=== PATIENT | female | born 1960 | race Caucasian/White ===

== ENCOUNTER 2019-03-29 15:53 | Inpatient (IN) | payer OTHER | END 2019-03-31 10:00 | disposition left against medical advice (07) | LOC: YASAS 15:53 → Y6N 21:25 ==

== ENCOUNTER 2019-05-22 16:21 | Inpatient (IN) | payer OTHER ==
[2019-05-22 22:41] VITALS: BMI 22.4
--- NOTE | 2019-05-23 00:35 | HP ---
"CIWA Score Nausea/Vomitin Muscle Tremors: 4-Moderate,w/Arms Extend Anxiety: 4-Mod. Anxious/Guarded Agitation: 6 Paroxysmal Sweats: 3 (Increased facial moisture) Orientation: 1-Uncertain about Date Tacttile Disturbances: 0-None Auditory Disturbances: 0-None Visual Disturbances: 0-None Headache: 0-None Present CIWA-Ar Total Score: 21 - Admission Criteria OASAS Guidelines: Admission for Medically Managed Detox: Requires at least one of the followin. CIWA greater than 12 2. Seizures within the past 24 hours 3. Delirium tremens within the past 24 hours 4. Hallucinations within the past 24 hours 5. Acute intervention needed for co occurring medical disorder 6. Acute intervention needed for co occurring psychiatric disorder 7. Severe withdrawal that cannot be handled at a lower level of care (continued vomiting, continued diarrhea, abnormal vital signs) requiring intravenous medication and/or fluids 8. Patient presents the following: CIWA greater than 12 Admission Criteria Met: Admission criteria met Admission ROS [facility] Chief Complaint: Alcohol withdrawal Allergies/Adverse Reactions: Allergies Allergy/AdvReac Type Severity Reaction Status Date / Time No Known Allergies Allergy Verified 05/22/19 22:32 History of Present Illness: 58 yo here with alcohol withdrawal being admitted for detox. Very agitated. Yelling and screaming. Last admission 03/2019; Alcohol use began at age 16. Current use x past 6 months off and on. 12 beers and about 1/2 - pint liquor daily. Nicotine use became 15. UTox + BZO TOBIAS: 0.136 Denies hx seizures/blackouts. PMHx: Denies significant PMH Last EKG @ [facility] on 03/29/19 MHHx: Bipolar. Currently talking meds. Has own MH Provider. Denies thoughts of harming self or others. Patient Name: Aydee Ghotra Date: 1960 Address: [address] [place] [address] Sex: Female Rx Written Rx Dispensed Drug Quantity Days Supply Prescriber Name 10/17/2018 10/18/2018 clonazepam 0.5 mg tablet 28 14 Jose Turner Search Terms: Aydee Ghotra, 1960 Search Date: 05/23/2019 12:46:02 AM States Searched: [place], [place], [place], [place], [place], [place] The Drug Utilization Report below displays the controlled substance prescriptions, if any, that were dispensed in the indicated state(s). The information displayed on this report is compiled from requests submitted to other states' PMPs, and accurately reflects the information as returned by them. Blank kirk indicate data not provided by other state. This report was requested by: Sierra Contreras | Reference #: [id number] Exam Limitations: No Limitations - Ebola screening Have you traveled outside of the country in the last 21 days: No Have you had contact with anyone from an Ebola affected area: No Have you been sick,other than usual withdrawal symptoms: No (Denies recent exposure to measles) Do you have a fever: No - Review of Systems Constitutional: Diaphoresis (Increased facial moisture), Changes in sleep ( Difficulty staying asleep - on Remeron.) EENT: reports: Blurred Vision Respiratory: reports: No Symptoms reported Cardiac: reports: No Symptoms Reported GI: reports: Nausea, Vomiting, Indigestion (acid reflux - controlled by diet) : reports: No Symptoms Reported Musculoskeletal: reports: No Symptoms Reported Integumentary: reports: No Symptoms Reported Neuro: reports: Tremors Endocrine: reports: Increased Thirst Hematology: reports: No Symptoms Reported Psychiatric: reports: Judgement Intact, Orientated x3, Agitated, Anxious, Depressed (Denies thoughts of harming self.) Patient History - Patient Medical History Hx Anemia: No Hx Asthma: No Hx Chronic Obstructive Pulmonary Disease (COPD): No Hx Cancer: No Hx Cardiac Disorders: No Hx Congestive Heart Failure: No Hx Hypertension: No Hx Hypercholesterolemia: No Hx Pacemaker: No HX Cerebrovascular Accident: No Hx Seizures: No Hx Dementia: No Hx Diabetes: No Hx Gastrointestinal Disorders: No Hx Liver Disease: No Hx Genitourinary Disorders: No Hx Sexually Transmitted Disorders: No Hx Renal Disease (ESRD): No Hx Thyroid Disease: No Hx Human Immunodeficiency Virus (HIV): No Hx Hepatitis C: No Hx Depression: Yes Hx Suicide Attempt: No Hx Bipolar Disorder: Yes Hx Schizophrenia: No - Patient Surgical History Past Surgical History: No Hx Neurologic Surgery: No Hx Cataract Extraction: No Hx Cardiac Surgery: No Hx Lung Surgery: No Hx Breast Surgery: No Hx Breast Biopsy: No Hx Abdominal Surgery: No Hx Appendectomy: No Hx Cholecystectomy: No Hx Genitourinary Surgery: No Hx Section: No Hx Orthopedic Surgery: No Anesthesia Reaction: No - PPD History Previous Implant?: Yes Documented Results: Negative w/proof Implanted On Prior [facility] Admission?: Yes Date: 03/31/19 PPD to be Administered?: No - Smoking Cessation Smoking history: Current every day smoker Have you smoked in the past 12 months: Yes Aproximately how many cigarettes per day: 15 Cigars Per Day: 0 Hx Chewing Tobacco Use: No Initiated information on smoking cessation: Yes 'Breaking Loose' booklet given: 05/23/19 - Substance & Tx. History Hx Alcohol Use: Yes Hx Substance Use: Yes Substance Use Type: Alcohol Hx Substance Use Treatment: Yes (detox, rehab) - Substances abused Alcohol Substance route: Oral Frequency: Daily Amount used: 10 beers 12-16 oz CANS Age of first use: 16 Date of last use: 05/22/19 Family Disease History - Family Disease History Family Disease History: Other: Father (ALCOHOL, ), Mother (ALCOHOL), Brother ( BIPOLAR) Admission Physical Exam [facility] - Vital Signs Vital Signs: Vital Signs - 24 hr 05/22/19 22:28 Temperature 98.1 F Pulse Rate 101 H Respiratory 16 Rate Blood Pressure 107/80 - Physical General Appearance: Yes: Mild Distress, Tremorous, Irritable, Sweating ( Increased facial moisture), Anxious HEENTM: Yes: EOMI (Jerking movement of eyes on lateral gaze), Hearing grossly Normal, Normocephalic, Normal Voice, DAO, Pharynx Normal Respiratory: Yes: Lungs Clear, Normal Breath Sounds, No Respiratory Distress Neck: Yes: No masses,lesions,Nodules, Supple Breast: Yes: Breast Exam Deferred Cardiology: Yes: Regular Rhythm, S1, S2, Tachycardia Abdominal: Yes: Non Tender, Soft, Increased Bowel Sounds, Protuberent Genitourinary: Yes: Within Normal Limits Back: Yes: Normal Inspection Musculoskeletal: Yes: full range of Motion, Gait Steady Extremities: Yes: Normal Capillary Refill, Normal Range of Motion, Tremors Neurological: Yes: collision worker II-XII NML intact (Jerking movement of eyes on lateral gaze), Alert, Motor Strength 5/5, Normal Response (r/t situation) Integumentary: Yes: Normal Color, Dry (Decreased skin turgor. Increased facial moisture), Warm Lymphatic: Yes: Within Normal Limits - Diagnostic (1) Nystagmus Current Visit: Yes Status: Acute (2) Alcohol dependence with uncomplicated withdrawal Current Visit: Yes Status: Acute (3) At risk for dehydration due to poor fluid intake Current Visit: Yes Status: Acute (4) Nicotine dependence Current Visit: Yes Status: Chronic Qualifiers: Nicotine product type: cigarettes Substance use status: uncomplicated Qualified Code(s): F17.210 - Nicotine dependence, cigarettes, uncomplicated Cleared for Admission [facility] - Detox or Rehab S Level of Care: Medically Managed Detox Regimen/Protocol: Not Applicable (ATIVAN) Claeared for Rehab Admission: No Screened but not Admitted - Documentation of Visit Screened but not Admitted: No Breathalyzer - Breathalyzer Breathalyzer: 0.136 Urine Drug Screen - Test Device Lot number: [id number] Expiration date: 12/08/20 - Control Is test valid?: Yes - Results Drug screen NEGATIVE: No Urine drug screen results: BZO-Benzodiazepines Inpatient Rehab Admission - Rehab Decision to Admit Inpatient rehab admission?: No"
[2019-05-23] MEDS ORDERED: MAGNESIUM HYDROX 2400MG/30ML ORAL SUSPENSION 30 ML CUP PO PRN (01:02)
[2019-05-23] MEDS ORDERED: MENTHOL/PHENOL 1 EACH UD MM PRN (01:02)
[2019-05-23] MEDS ORDERED: METHOCARBAMOL 500 MG TABLET PO PRN (01:02)
[2019-05-23] MEDS ORDERED: IBUPROFEN 400 MG TABLET (FP) PO PRN (01:02)
[2019-05-23] MEDS ORDERED: MAGNESIUM CITRATE 300 ML BOTTLE PO PRN (01:02)
[2019-05-23] MEDS ORDERED: BISMUTH SUBSALICYLATE 524 MG/30 ML UD PO PRN (01:02)
[2019-05-23] MEDS ORDERED: MELATONIN 5 MG TABLETS PO PRN (01:02)
[2019-05-23] MEDS ORDERED: ACETAMINOPHEN 325 MG TABLET (FP) PO PRN ×2 (01:02)
[2019-05-23] MEDS ORDERED: LORazepam 2 MG TABLET PO ONE (01:02)
[2019-05-23] MEDS ORDERED: MAG HYDROX/AL HYDROX/SIMETH 30 ML UNIT-DOSE CUP PO PRN (01:02)
[2019-05-23] MEDS ORDERED: LORazepam 1 MG TABLET PO PRN (01:02)
[2019-05-23] MEDS ORDERED: MIRTAZAPINE 15 MG TABLET (FP) PO ONE (01:06)
[2019-05-23] MEDS: LORazepam 2 MG TABLET PO SCH ×2 (06:24→11:48)
[2019-05-23] MEDS ORDERED: TOPIRAMATE 100 MG TABLET PO SCH (10:00)
[2019-05-23] MEDS ORDERED: chlordiazePOXIDE HCL 25 MG CAPSULE PO PRN (11:38)
[2019-05-23] MEDS ORDERED: chlordiazePOXIDE HCL 25 MG CAPSULE PO ONE (11:50)
[2019-05-23] MEDS: PRENATAL VITAMINS W/ FOLIC ACID TABLET (FP) PO SCH (11:55)
[2019-05-23] MEDS: NICOTINE 14 MG/24 HOURS TOPICAL PATCH TD SCH (11:58)
[2019-05-23 12:12] LABS: HEMATOCRIT 34.2 % (32.4-45.2); HEMOGLOBIN 11.5 GM/dL (10.7-15.3); MCH 31.2 pg (25.7-33.7); MCHC 33.7 g/dl (32.0-36.0); MEAN CELL VOLUME 92.7 fl (80-96); MEAN PLT VOLUME 8.1 fl (7.5-11.1); RBC 3.69 M/mm3 (3.60-5.2); RDW 13.5 % (11.6-15.6); WHITE BLOOD COUNT 6.1 K/mm3 (4.0-10.0)
[2019-05-23 12:31] LABS: ALBUMIN 3.4 g/dl (3.4-5.0); BILIRUBIN,TOTAL 0.2 mg/dL (0.2-1); BLOOD UREA NITROGEN 16.9 mg/dL (7-18); CALCIUM 8.8 mg/dL (8.5-10.1); CREATININE 0.7 mg/dL (0.55-1.3); TOT PROT 6.4 g/dl (6.4-8.2)
[2019-05-23 13:16] LABS: PLATELET COUNT 277 K/MM3 (134-434)
--- NOTE | 2019-05-23 13:19 | PN ---
S CIWA - CIWA Score Nausea/Vomitin-No Nausea/No Vomiting Muscle Tremors: 4-Moderate,w/Arms Extend Anxiety: 4-Mod. Anxious/Guarded Agitation: 4-Moderately Restless Paroxysmal Sweats: 3 Orientation: 0-Oriented Tacttile Disturbances: 0-None Auditory Disturbances: 0-None Visual Disturbances: 0-None Headache: 1-Very Mild CIWA-Ar Total Score: 16 BHS Progress Note (SOAP) Subjective: shakes sweats irritable agitation interrupted sleep Objective: 05/23/19 13:16 Vital Signs Temperature 98.1 F 05/23/19 09:44 Pulse Rate 89 05/23/19 09:44 Respiratory Rate 18 05/23/19 09:44 Blood Pressure 121/73 05/23/19 09:44 O2 Sat by Pulse Oximetry (%) Laboratory Tests 05/23/19 05/23/19 07:00 07:00 WBC 6.1 RBC 3.69 Hgb 11.5 Hct 34.2 MCV 92.7 MCH 31.2 MCHC 33.7 RDW 13.5 Plt Count 277 D MPV 8.1 Sodium 140 Potassium 4.0 Chloride 109 H Carbon Dioxide 27 Anion Gap 4 L BUN 16.9 Creatinine 0.7 Est GFR (CKD-EPI)AfAm 110.69 Est GFR (CKD-EPI)NonAf 95.50 Random Glucose 85 Calcium 8.8 Total Bilirubin 0.2 AST 13 L ALT 26 Alkaline Phosphatase 81 Total Protein 6.4 Albumin 3.4 labs noted aaox3 ambulating no acute distress Assessment: 05/23/19 13:17 withdrawal sx discussed with pt regarding her reason for an ativan regimen detox and she states its what i have used in the past. educated her that her s/s would be better controlled with librium taper and ativan is not long acting therefore its not appropriate for her with her alcohol dependence. Pt agreed with the librium taper and she will be placed on librium detox. Plan: continue with new detox regimen of librium increase fluids
--- NOTE | 2019-05-23 17:43 | CONSULT ---
[facility] Psych[facility] Consult - Data Date of interview: 05/23/19 Admission source: Self-referred Identifying data: Ms Ghotra is a 58 years old single female, unemployed receiving SSD, domiciled seeking detox treatment for alcohol Substance Abuse History: Reports history of alcohol use. Refer to addiction counselor's summary for further information Medical History: Unremarkable Psychiatric History: Patient is hostile and superficially cooperative. She reports being diagnosed with Bipolar Disorder in 2007 and started on psychotropic medications. Reports multiple psychiatric hospitalizations but can only name [facility]. Reports seeing a private psychiatrist in [facility] and she is prescribed Wellbutin XL 150 mg/day, [place] 300 mg.bid, Remeron 15 mg/hs and Topamax 300 mg/hs. External medication history shows scripts for 30 days supply of Wellbutrin XL 150mg/day, [place] 300 mg,bid, Remeron 15 mg/hs and Topamax 300 mg/hs filled on 03/10/19 at [facility] Physical/Sexual Abuse/Trauma History: Note elicited due to patient hostility Mental Status Exam - Mental Status Exam Alert and Oriented to: Time, Place, Person Cognitive Function: Fair Patient Appearance: Well Groomed Mood: Irritable Affect: Appropriate Patient Behavior: Cooperative Speech Pattern: Clear Voice Loudness: Normal Thought Process: Intact, Goal Oriented Hallucinations: Denies Suicidal Ideation: Denies Homicidal Ideation: Denies Insight/Judgement: Poor Sleep: Poorly Appetite: Poor Muscle strength/Tone: Normal Gait/Station: Normal Psychiatric Findings - Problem List ([place] 1, 2,3) (1) Bipolar disorder Current Visit: No Status: Chronic Comment: History confirmed by current regimen of medications + self-report. (2) Alcohol-induced mood disorder Current Visit: Yes Status: Acute (3) Alcohol-induced sleep disorder Current Visit: Yes Status: Acute (4) Alcohol dependence with uncomplicated withdrawal Current Visit: Yes Status: Acute (5) Nicotine dependence Current Visit: Yes Status: Chronic Qualifiers: Nicotine product type: cigarettes Substance use status: uncomplicated Qualified Code(s): F17.210 - Nicotine dependence, cigarettes, uncomplicated - Initial Treatment Plan Initial Treatment Plan: 1) Resume Wellbutrin XL 150 mg po daily, [place] 300 mg po BID(Bun 16.9, creat 0.7), Remeron 15 mg po HS and Topamax 300 mg po HS. 2 ) [place] serum level. 3) Continue inpatient detoxification
[2019-05-23] MEDS: chlordiazePOXIDE HCL 25 MG CAPSULE PO SCH ×2 (17:53→23:13)
[2019-05-23] MEDS ORDERED: MIRTAZAPINE 15 MG TABLET (FP) PO SCH (22:00)
[2019-05-23] MEDS: TOPIRAMATE 100 MG TABLET PO SCH (23:12)
[2019-05-23] MEDS: MIRTAZAPINE 15 MG TABLET (FP) PO SCH (23:13)
[2019-05-23] MEDS: THIAMINE HCL 100 MG TABLET (FP) PO SCH (23:13)
[2019-05-23] MEDS: LITHIUM CARBONATE 300 MG CAPSULE (FP) PO SCH (23:15)
[2019-05-24] MEDS ORDERED: LORazepam 1 MG TABLET PO SCH (05:00)
[2019-05-24] MEDS: chlordiazePOXIDE HCL 25 MG CAPSULE PO SCH ×4 (06:52→22:31)
[2019-05-24] MEDS: LITHIUM CARBONATE 300 MG CAPSULE (FP) PO SCH ×2 (10:32→22:36)
[2019-05-24] MEDS: PRENATAL VITAMINS W/ FOLIC ACID TABLET (FP) PO SCH (10:33)
[2019-05-24] MEDS: NICOTINE 14 MG/24 HOURS TOPICAL PATCH TD SCH (10:34)
--- NOTE | 2019-05-24 11:48 | PN ---
S CIWA - CIWA Score Nausea/Vomitin-No Nausea/No Vomiting Muscle Tremors: 3 Anxiety: 3 Agitation: 3 Paroxysmal Sweats: 3 Orientation: 0-Oriented Tacttile Disturbances: 0-None Auditory Disturbances: 0-None Visual Disturbances: 0-None Headache: 0-None Present CIWA-Ar Total Score: 12 S Progress Note (SOAP) Subjective: agitation sweats irritable interrupted sleep want to see dietary Objective: 05/24/19 11:48 Vital Signs Temperature 97 F L 05/24/19 07:36 Pulse Rate 72 05/24/19 07:36 Respiratory Rate 18 05/24/19 07:36 Blood Pressure 101/70 05/24/19 07:36 O2 Sat by Pulse Oximetry (%) Laboratory Tests 05/23/19 05/23/19 05/23/19 07:00 07:00 07:00 WBC 6.1 RBC 3.69 Hgb 11.5 Hct 34.2 MCV 92.7 MCH 31.2 MCHC 33.7 RDW 13.5 Plt Count 277 D MPV 8.1 Sodium 140 Potassium 4.0 Chloride 109 H Carbon Dioxide 27 Anion Gap 4 L BUN 16.9 Creatinine 0.7 Est GFR (CKD-EPI)AfAm 110.69 Est GFR (CKD-EPI)NonAf 95.50 Random Glucose 85 Calcium 8.8 Total Bilirubin 0.2 AST 13 L ALT 26 Alkaline Phosphatase 81 Total Protein 6.4 Albumin 3.4 RPR Titer Nonreactive aaox3 ambulating no acute distress Assessment: 05/24/19 11:48 withdrawal sx Plan: continue detox increase fluids dietary production support consultant ordered
[2019-05-24] MEDS: MIRTAZAPINE 15 MG TABLET (FP) PO SCH (22:31)
[2019-05-24] MEDS: TOPIRAMATE 100 MG TABLET PO SCH (22:32)
[2019-05-24] MEDS: THIAMINE HCL 100 MG TABLET (FP) PO SCH (22:33)
[2019-05-25] MEDS ORDERED: LORazepam 0.5 MG TABLET PO PRN
[2019-05-25] MEDS ORDERED: chlordiazePOXIDE HCL 25 MG CAPSULE PO SCH (05:00)
[2019-05-25] MEDS ORDERED: LORazepam 0.5 MG TABLET PO SCH (05:00)
[2019-05-25 09:47] VITALS: BP 91/58; PULSE 85; TEMP 98.1
--- NOTE | 2019-05-25 10:55 | PN ---
S Progress Note Note: pt was admitted in withdrawals pt c/o withdrawals s/s and aggressive symptomatic management attempted however, pt in spite of extensive motivational counseling regarding the risk of relapse, seizures, DT's, and or loss, pt chose to sign out AMA.
--- NOTE | 2019-05-25 11:10 | DS ---
[facility] Detox Discharge Summary Admission Date: 05/23/19 - History Present History: Alcohol Dependence - Physical Exam Results Vital Signs: Vital Signs Temperature 98.1 F 05/25/19 09:47 Pulse Rate 85 05/25/19 09:47 Respiratory Rate 16 05/25/19 09:47 Blood Pressure 91/58 L 05/25/19 09:47 O2 Sat by Pulse Oximetry (%) Pertinent Admission Physical Exam Findings: pt arrived [facility] Laboratory Tests 05/23/19 05/23/19 05/23/19 07:00 07:00 07:00 WBC 6.1 RBC 3.69 Hgb 11.5 Hct 34.2 MCV 92.7 MCH 31.2 MCHC 33.7 RDW 13.5 Plt Count 277 D MPV 8.1 Sodium 140 Potassium 4.0 Chloride 109 H Carbon Dioxide 27 Anion Gap 4 L BUN 16.9 Creatinine 0.7 Est GFR (CKD-EPI)AfAm 110.69 Est GFR (CKD-EPI)NonAf 95.50 Random Glucose 85 Calcium 8.8 Total Bilirubin 0.2 AST 13 L ALT 26 Alkaline Phosphatase 81 Total Protein 6.4 Albumin 3.4 [place] RPR Titer Nonreactive 05/24/19 07:44 WBC RBC Hgb Hct MCV MCH MCHC RDW Plt Count MPV Sodium Potassium Chloride Carbon Dioxide Anion Gap BUN Creatinine Est GFR (CKD-EPI)AfAm Est GFR (CKD-EPI)NonAf Random Glucose Calcium Total Bilirubin AST ALT Alkaline Phosphatase Total Protein Albumin [place] 0.3 L RPR Titer pt signed out ama regardless of risk of relapse. pt was still a bit shaky, aaox3 and going home. pt states she will be going [place] outpatient rehab for [place] - Treatment Hospital Course: Discharged Condition Good Patient has Accepted a Rehab Referral to: pt declined rehab; referral provided - Medication Discharge Medications: Ambulatory Orders [place] Carbonate [Eskalith -] 300 mg PO BID 03/29/19 Mirtazapine [Remeron -] 15 mg PO HS 03/29/19 Topiramate 100 mg PO BID 03/29/19 - AMA Did Patient Leave Against Medical Advice: Yes
[2019-05-26] MEDS ORDERED: chlordiazePOXIDE HCL 10 MG CAPSULE PO SCH (05:00)
[2019-05-26] MEDS ORDERED: LORazepam 0.5 MG TABLET PO ONE (05:00)
[2019-05-27] MEDS ORDERED: chlordiazePOXIDE HCL 10 MG CAPSULE PO SCH (05:00)
[2019-05-28] MEDS ORDERED: chlordiazePOXIDE HCL 10 MG CAPSULE PO ONE (05:00)
== END 2019-05-25 10:10 | disposition left against medical advice (07) | DRG 894 ==
LOC: YASAS 16:21 → Y6N 05-23 00:57
PROVIDERS: ADMIT Surgery; ATTEND Surgery
PROC: HZ2ZZZZ Detoxification Services for Substance Abuse Treatment (ICD-10-PCS; principal; 2019-05-23)
DX: F10.230 Alcohol dependence with withdrawal, uncomplicated (principal); F10.24 Alcohol dependence with alcohol-induced mood disorder; F10.282 Alcohol dependence with alcohol-induced sleep disorder; F17.210 Nicotine dependence, cigarettes, uncomplicated; F31.9 Bipolar disorder, unspecified; H55.00 Unspecified nystagmus; Z91.89 Other specified personal risk factors, not elsewhere classified; Z86.59 Personal history of other mental and behavioral disorders
CPT/HCPCS: 36415; 80053; 80178; 85027; 86593